=== PATIENT | male | born 1985 | race Caucasian/White ===

== ENCOUNTER 2018-03-18 12:11 | Emergency (ER) | payer BC, OTHER ==
[~2018-03-18] VITALS: Ht 177.8 cm; Wt 90.9 kg
[~2018-03-18 12:11] MED LIST: PHEN1LIQ27 PO
[2018-03-18 12:16] VITALS: TEMP 36.9; Ht 177.8 cm; Wt 90.9 kg
[2018-03-18] MEDS ORDERED: KETOROLAC TROMETHAMINE 30 MG/ML VIAL IV STA (12:32)
[2018-03-18 12:52] LABS: BASO % 0.2 %; BASO ABS # 0.01 K/uL (0-0.2); EOS ABS # 0.05 K/uL (0-0.5); HEMATOCRIT 45.8 % (42-52); HEMOGLOBIN 16.3 g/dL (14.0-18.0); IG# 0.01 K/uL (0.00-0.02); LYMPH % 15.7 %; LYMPH ABS # 0.81 K/uL (1.2-3.4); MEAN CELL VOLUME 85.4 fL (80-100); MEAN CORPUSCULAR HEMOGLOBIN 30.4 pg (25-34); MEAN CORPUSCULAR HGB CONC 35.6 g/dl (32-36); MEAN PLATELET VOLUME 9.8 fL (7.4-10.4); MONO % 12.4 %; MONO ABS # 0.64 K/uL (0.11-0.59); NEUT % 70.5 %; NEUT ABS # 3.63 K/uL (1.4-6.5); PLATELET COUNT 165 K/uL (130-400); RED CELL DISTRIBUTION WIDTH CV 12.9 % (11.5-14.5); RED CELL DISTRIBUTION WIDTH SD 40.7 fL (36.4-46.3); WHITE BLOOD COUNT 5.15 K/uL (4.8-10.8)
--- NOTE | 2018-03-18 13:06 | DIAGNOSTIC IMAGING REPORT ---
HEAD WITHOUT CONTRAST (CT) CT DOSE: 687.98 mGy.cm HISTORY: TALLEY, repeatedly TECHNIQUE: Multiaxial CT images of the head were performed without the use of intravenous contrast. A dose lowering technique was utilized adhering to the principles of ALARA. Comparison: None. Findings: The paranasal sinuses and mastoid air cells are clear. The calvarium and skull base are intact. The ventricles and sulci are within normal limits. There is no mass, hematoma, midline shift, or acute infarct. Impression: No acute intracranial abnormality. The above report was generated using voice recognition software. It may contain grammatical, syntax or spelling errors. Electronically signed by: Néstor Chaves M.D. 03/18/2018 1:05 PM Dictated Date/Time: 03/18/2018 1:05 PM
[2018-03-18 13:09] LABS: ALBUMIN 3.7 gm/dl (3.4-5.0); CALCIUM 8.2 mg/dl (8.5-10.1); CREATININE 1.33 mg/dl (0.60-1.40); POTASSIUM 3.7 mmol/L (3.5-5.1)
[2018-03-18 13:20] LABS: TOTAL PROTEIN 7.3 gm/dl (6.4-8.2)
--- NOTE | 2018-03-18 13:43 | DIAGNOSTIC IMAGING REPORT ---
L KNEE 1 OR 2 VIEWS ROUTINE CLINICAL HISTORY: knee pain and aching pain COMPARISON: None. DISCUSSION: The bones and joint spaces appear intact. There is no evidence of fracture, dislocation or bony disease. There is no evidence for soft tissue swelling. IMPRESSION: Negative study. The above report was generated using voice recognition software. It may contain grammatical, syntax or spelling errors. Electronically signed by: Néstor Chaves M.D. 03/18/2018 1:41 PM Dictated Date/Time: 03/18/2018 1:41 PM
--- NOTE | 2018-03-18 13:44 | DIAGNOSTIC IMAGING REPORT ---
R KNEE 1 OR 2 VIEWS ROUTINE CLINICAL HISTORY: knee pain and aching pain COMPARISON: None. DISCUSSION: The bones and joint spaces appear intact. There is no evidence of fracture, dislocation or bony disease. There is no evidence for soft tissue swelling. IMPRESSION: Negative study. The above report was generated using voice recognition software. It may contain grammatical, syntax or spelling errors. Electronically signed by: Néstor Chaves M.D. 03/18/2018 1:42 PM Dictated Date/Time: 03/18/2018 1:42 PM
--- NOTE | 2018-03-18 14:09 | EMERGENCY ROOM VISIT NOTE ---
History Report prepared by Suzy: Carolynn Franks Under the Supervision of: Dr. Hilda Scott M.D. First contact with patient: 12:20 Chief Complaint: HEADACHE Stated Complaint: SEVERE HEADACHE,WEAKNESS,JOINT PAIN,DIZZINESS History of Present Illness The patient is a 32 year old male who presents to the Emergency Room with complaints of a constant headache starting last night. The patient states that he became lightheaded last night while he was working in the garage. He reports that he went and sat down for a bit. He states that he drank Gatorade and ate some cereal. He reports he hadn't eaten all day and thought it was from that, but it offered no relief. He reports that the episode lasted a few hours. He states that out of nowhere he got a throbbing headache. The patient states that he gets headaches all the time, but not with an onset like this. He states that he usually takes Advil and it goes away. The patient complains of chills, knee pain, and shoulder pain. He states that his knees and shoulder feel achy. He reports that he is concerned for Lyme Disease. 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 The patient denies vomiting, vision changes, abdominal pain, and neck pain. Source of History: patient Onset: last night Position: head Quality: ache, other (throbbing) Timing: constant Associated Symptoms: + chills, No neck pain, No vomiting, No abdominal pain Note: The patient complains of lightheadedness, knee pain, and shoulder pain. The patient denies vision changes. Review of Systems See HPI for pertinent positives & negatives. A total of 10 systems reviewed and were otherwise negative. Past Medical & Surgical No known medical problems. Family History Diabetes mellitus Heart disease Hypertension Social History Smoking Status: Never Smoker Smokeless Tobacco Use: Yes Alcohol Use: other (rarely) Drug Use: none Marital Status: Housing Status: lives with family Occupation Status: employed Current/Historical Medications No Active Prescriptions or Reported Meds Allergies Coded Allergies: No Known Allergies (Unverified , 03/18/18) Physical Exam Vital Signs Date Time Temp Pulse Resp B/P (MAP) Pulse Ox O2 Delivery O2 Flow Rate FiO2 03/18/18 14:12 92 15 127/78 94 03/18/18 14:10 88 16 127/78 98 Room Air 03/18/18 13:49 83 03/18/18 13:41 86 19 165/95 96 Room Air 03/18/18 12:16 36.9 89 17 117/78 98 Room Air Physical Exam Vital signs reviewed. General: Well-appearing, in no significant distress. HEENT: No scleral icterus, PERRLA, neck supple. Atraumatic. No meningeal signs. Cardiovascular: Regular rate and rhythm, no extra sounds. Pulmonary: Clear to auscultation bilaterally, normal work of breathing. Abdomen: Soft, nontender, nondistended, positive bowel sounds. Musculoskeletal: Atraumatic, no peripheral edema. Calluses to bilateral knees. No effusions appreciated bilaterally. Full ROM. Neurologic: Patient awake alert and oriented x 3, full strength in all 4 extremities. Cranial nerves 2 through 12 grossly intact. Skin: Warm, dry, no rash Medical Decision & Procedures ER Provider Diagnostic Interpretation: Radiology results as stated below per my review and radiologist interpretation: HEAD WITHOUT CONTRAST (CT) CT DOSE: 687.98 mGy.cm HISTORY: TALLEY, repeatedly TECHNIQUE: Multiaxial CT images of the head were performed without the use of intravenous contrast. A dose lowering technique was utilized adhering to the principles of ALARA. Comparison: None. Findings: The paranasal sinuses and mastoid air cells are clear. The calvarium and skull base are intact. The ventricles and sulci are within normal limits. There is no mass, hematoma, midline shift, or acute infarct. Impression: No acute intracranial abnormality. The above report was generated using voice recognition software. It may contain grammatical, syntax or spelling errors. Electronically signed by: Néstor Chaves M.D. 03/18/2018 1:05 PM Dictated Date/Time: 03/18/2018 1:05 PM L KNEE 1 OR 2 VIEWS ROUTINE CLINICAL HISTORY: knee pain and aching pain COMPARISON: None. DISCUSSION: The bones and joint spaces appear intact. There is no evidence of fracture, dislocation or bony disease. There is no evidence for soft tissue swelling. IMPRESSION: Negative study. The above report was generated using voice recognition software. It may contain grammatical, syntax or spelling errors. Electronically signed by: Néstor Chaves M.D. 03/18/2018 1:41 PM Dictated Date/Time: 03/18/2018 1:41 PM R KNEE 1 OR 2 VIEWS ROUTINE CLINICAL HISTORY: knee pain and aching pain COMPARISON: None. DISCUSSION: The bones and joint spaces appear intact. There is no evidence of fracture, dislocation or bony disease. There is no evidence for soft tissue swelling. IMPRESSION: Negative study. The above report was generated using voice recognition software. It may contain grammatical, syntax or spelling errors. Electronically signed by: Néstor Chaves M.D. 03/18/2018 1:42 PM Dictated Date/Time: 03/18/2018 1:42 PM Laboratory Results 03/18/18 12:34 Red Blood Count 5.36, Mean Corpuscular Volume 85.4, Mean Corpuscular Hemoglobin 30.4, Mean Corpuscular Hemoglobin Concent 35.6, Mean Platelet Volume 9.8, Neutrophils (%) (Auto) 70.5, Lymphocytes (%) (Auto) 15.7, Monocytes (%) (Auto) 12.4, Eosinophils (%) (Auto) 1.0, Basophils (%) (Auto) 0.2, Neutrophils # (Auto ) 3.63, Lymphocytes # (Auto) 0.81, Monocytes # (Auto) 0.64, Eosinophils # (Auto ) 0.05, Basophils # (Auto) 0.01 03/18/18 12:34 Test 03/18/18 12:34 White Blood Count 5.15 K/uL (4.8-10.8) Red Blood Count 5.36 M/uL (4.7-6.1) Hemoglobin 16.3 g/dL (14.0-18.0) Hematocrit 45.8 % (42-52) Mean Corpuscular Volume 85.4 fL (80-100) Mean Corpuscular Hemoglobin 30.4 pg (25-34) Mean Corpuscular Hemoglobin Concent 35.6 g/dl (32-36) Platelet Count 165 K/uL (130-400) Mean Platelet Volume 9.8 fL (7.4-10.4) Neutrophils (%) (Auto) 70.5 % Lymphocytes (%) (Auto) 15.7 % Monocytes (%) (Auto) 12.4 % Eosinophils (%) (Auto) 1.0 % Basophils (%) (Auto) 0.2 % Neutrophils # (Auto) 3.63 K/uL (1.4-6.5) Lymphocytes # (Auto) 0.81 K/uL (1.2-3.4) Monocytes # (Auto) 0.64 K/uL (0.11-0.59) Eosinophils # (Auto) 0.05 K/uL (0-0.5) Basophils # (Auto) 0.01 K/uL (0-0.2) RDW Standard Deviation 40.7 fL (36.4-46.3) RDW Coefficient of Variation 12.9 % (11.5-14.5) Immature Granulocyte % (Auto) 0.2 % Immature Granulocyte # (Auto) 0.01 K/uL (0.00-0.02) Urine Color DK YELLOW Urine Appearance CLEAR (CLEAR) Urine pH 5.5 (4.5-7.5) Urine Specific [place] 1.044 (1.000-1.030) Urine Protein TRACE (NEG) Urine Glucose (UA) NEG (NEG) Urine Ketones 1+ (NEG) Urine Occult Blood NEG (NEG) Urine Nitrite NEG (NEG) Urine Bilirubin NEG (NEG) Urine Urobilinogen NEG (NEG) Urine Leukocyte Esterase TRACE (NEG) Urine WBC (Auto) 1-5 /hpf (0-5) Urine RBC (Auto) 0-4 /hpf (0-4) Urine Hyaline Casts (Auto) 1-5 /lpf (0-5) Urine Epithelial Cells (Auto) 10-20 /lpf (0-5) Urine Bacteria (Auto) NEG (NEG) Anion Gap 5.0 mmol/L (3-11) Est Creatinine Clear Calc Drug Dose 89.6 ml/min Estimated GFR () 80.8 Estimated GFR (Non- 69.7 BUN/Creatinine Ratio 8.6 (10-20) Calcium Level 8.2 mg/dl (8.5-10.1) Total Bilirubin 0.7 mg/dl (0.2-1) Direct Bilirubin 0.2 mg/dl (0-0.2) Aspartate Amino Transf (AST/SGOT) 21 U/L (15-37) Alanine Aminotransferase (ALT/SGPT) 29 U/L (12-78) Alkaline Phosphatase 94 U/L (45-117) Total Protein 7.3 gm/dl (6.4-8.2) Albumin 3.7 gm/dl (3.4-5.0) Thyroid Stimulating Hormone (TSH) 0.494 uIu/ml (0.300-4.500) Lyme Disease IgG Antibody NEG (NEG) Lyme Disease IgM Antibody NEG (NEG) Laboratory results per my review. Medications Administered Medications (Trade) Dose Ordered Sig/Benjamin Route Start Time Stop Time Status Last Admin Dose Admin Ketorolac Tromethamine (Toradol Inj) 30 mg NOW STAT IV 03/18/18 12:32 03/18/18 12:34 DC 03/18/18 12:48 30 MG ED Course 1224: Past medical records reviewed. The patient was evaluated in room A4B. A complete history and physical examination was performed. 1232: Ordered Toradol Inj 30 mg IV. 0208: Upon reevaluation, the patient appeared to have improvement of his symptoms. I discussed findings with him. He verbalized agreement of the treatment plan. The patient was discharged home. Medical Decision Differential diagnosis: Etiologies such as migraine headache, meningitis, sinusitis, CO exposure, ICH, SAH, infection, tumor, headache, sinus thrombosis, arterial dissection, as well as others were entertained. This patient was evaluated and appeared to be in no significant distress. IV access was obtained and laboratory work was drawn. Patient was placed on manager cardiac cath. CT scan of the head was performed and is negative. Lyme titers are negative. Laboratory work is otherwise unrevealing. Patient was given a dose of IV Toradol with some improvement in his symptoms. X-rays of the knees bilaterally are negative. 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 His headaches may be related to his excessive caffeine intake. His states he drinks 6-12 Mountain Dews daily, which he was advised to cut back on or stop. He was encouraged to drink plenty of water and to sleep on a regular schedule. He will follow-up with his physician for reevaluation and return to the ER for worsening of symptoms or any medical concerns. Medication Reconcilliation Current Medication List: was personally reviewed by me Blood Pressure Screening Patient's blood pressure: Elevated blood pressure Blood pressure disposition: Elevated BP felt to be situational Due to anxiety of IV start. Impression Primary Impression: Headache, migraine Additional Impression: Knee pain, bilateral Scribe Attestation The scribe's documentation has been prepared under my direction and personally reviewed by me in its entirety. I confirm that the note above accurately reflects all work, treatment, procedures, and medical decision making performed by me. Departure Information Dispostion Home / Self-Care Prescriptions No Active Prescriptions or Reported Meds Referrals No Doctor, Assigned (PCP) Forms HOME CARE DOCUMENTATION FORM, IMPORTANT VISIT INFORMATION Patient Instructions My [facility] Additional Instructions Diagnosis: Headache, bilateral knee pain Ibuprofen 600 mg every 6 hours as needed for pain with food. Please drink plenty of clear fluids. Consider knee pads or supports during work hours. Drink plenty of clear fluids including water. Minimize coffee and soda intake. Follow-up with your doctor this week for reevaluation. Return to the ER for worsening of symptoms or any medical concerns. Problem Qualifiers
[2018-03-18 14:12] VITALS: BP 127/78; PULSE 92; O2SAT 94
== END 2018-03-18 14:14 | disposition home or self-care (01) ==
LOC: C.EDB 12:14 → C.EDA 14:14
DX: G43.909 Migraine, unspecified, not intractable, without status migrainosus (principal); M25.561 Pain in right knee; M25.562 Pain in left knee; Z83.3 Family history of diabetes mellitus; Z82.49 Family history of ischemic heart disease and other diseases of the circulatory system